=== PATIENT | female | born 2000 | race Two or more races ===

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

== ENCOUNTER 2021-02-04 06:50 | Emergency (ER) | payer OTHER ==
[~2021-02-04] VITALS: Ht 170.2 cm; Wt 70.3 kg
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
--- NOTE | 2021-02-04 07:09 | NUR ---
AT BEDSIDE FOR EVAL.
--- NOTE | 2021-02-04 07:18 | NUR ---
ER PHLEB AT BEDSIDE FOR BLOOD DRAW.
[2021-02-04 08:03] LABS: BASOPHILS % (AUTO) 0.2 % (0.0-2.0); EOSINOPHILS % (AUTO) 1.1 % (0.0-6.0); HEMATOCRIT 39 % (33-45); LYMPHOCYTES % (AUTO) 5.2 % (20.0-44.0); MEAN CORPUSCULAR HGB CONC 31 g/dl (31.0-36.0); MEAN CORPUSCULAR VOLUME 91 fL (82-100); MONOCYTES # (AUTO) 1.3 K/uL (0.1-1.30); MONOCYTES % (AUTO) 6.9 % (2.0-12.0); NEUTROPHILS # (AUTO) 15.8 K/uL (1.8-8.9); NEUTROPHILS % (AUTO) 86.6 % (43.0-81.0); PLATELET COUNT (AUTO) 259 K/uL (150-450); RED BLOOD CELL COUNT(AUTO) 4.31 MIL/uL (4.0-5.2); WHITE BLOOD COUNT (AUTO) 18.3 K/uL (4.3-11.0)
[2021-02-04 08:23] LABS: CALCIUM, SERUM 8.9 mg/dL (8.5-10.1); CREATININE 0.9 mg/dL (0.6-1.3); POTASSIUM 3.5 mmol/L (3.5-5.1)
[2021-02-04] MEDS ORDERED: ONDANSETRON HCL/PF 4 MG/2 ML VIAL ONE (08:27)
[2021-02-04] MEDS ORDERED: MORPHINE SULFATE INJ 4 MG/ML DISP.SYRIN ONE (08:28)
[2021-02-04] MEDS ORDERED: ONDANSETRON HCL/PF - ER 4 MG/2 ML VIAL IV ONE (08:30)
[2021-02-04] MEDS ORDERED: MORPHINE SULFATE INJ 2 MG/ML DISP.SYRIN IV ONE (08:30)
[2021-02-04] MEDS ORDERED: IV NS 0.9% 250 ML IV ONE (08:49)
[2021-02-04] MEDS ORDERED: IOHEXOL-300 100 ML VIAL IV ONE (08:49)
[2021-02-04] MEDS ORDERED: TRAM50TA2 PO (10:14)
[2021-02-04] MEDS ORDERED: IBUP-1955 PO (10:14)
[2021-02-04 10:28] VITALS: BP 124/99
--- NOTE | 2021-02-04 10:28 | NUR ---
IV removed. Catheter intact and site benign. Pressure and 4x4 applied to site. No bleeding noted.Patient discharged to home in stable condition. Written and verbal after care instructions given. Patient verbalizes understanding of instruction.
== END 2021-02-04 10:29 | disposition home or self-care (01) ==
LOC: ER 06:51
DX: S20.212A Contusion of left front wall of thorax, initial encounter (principal); S90.32XA Contusion of left foot, initial encounter; S49.92XA Unspecified injury of left shoulder and upper arm, initial encounter; S09.8XXA Other specified injuries of head, initial encounter; Z88.2 Allergy status to sulfonamides; Z79.899 Other long term (current) drug therapy; V49.49XA Driver injured in collision with other motor vehicles in traffic accident, initial encounter; Y93.89 Activity, other specified; Y92.488 Other paved roadways as the place of occurrence of the external cause; Y99.8 Other external cause status
CPT/HCPCS: 36415; 70450; 71260; 73030; 73630; 80048; 84702; 85025; 96374; 96375; 99285; J2270; J2405 ×2; J7050; Q9967